=== PATIENT | female | born 1940 | race Caucasian/White ===

== ENCOUNTER → 2023-05-28 10:32 | Outpatient (CLI) | payer OTHER, SELFPAY ==
[2023-05-28 12:29] LABS: Add Manual Diff / Slide Review NO; Basophils Absolute Auto 0 /uL (0-100); Basophils Percent Auto 0.3 % (0-2); Eosinophils Absolute Auto 100 /uL (0-450); Eosinophils Percent Auto 1.9 % (2-4); Hemoglobin 14.4 g/dL (12.0-16.0); Lymphocytes Absolute Auto 1600 /uL (1100-4500); Mean Corpuscular HGB Conc 34.2 % (30-36); Mean Corpuscular Hemoglobin 31.9 PG (26-34); Mean Corpuscular Volume 93.4 fL (80-100); Monocytes Absolute Auto 400 /uL (0-900); Monocytes Percent Auto 9.2 % (3-14); Neutrophils Absolute Auto 2300 /uL (1500-7000); Neutrophils Percent Auto 52.6 % (50-75); Platelet Count 282 X10^3/uL (150-400); Red Cell Distribution Width 12.7 % (11.6-14.8); White Blood Cell Count 4.5 X10^3/uL (4.5-11.0)
[2023-05-28 13:01] LABS: Erythrocyte Sedimentation Rate 5 MM/HR (0-20)
[2023-05-28 13:17] LABS: Alanine Aminotransferase 19 IU/L (<35); Albumin 4.4 g/dL (3.5-5.0); Albumin Globulin Ratio 1.4 (1.0-2.8); Alkaline Phosphatase 69 U/L (38-126); Aspartate Aminotransferase 26 IU/L (14-36); BUN Creatinine Ratio 21.6 (6-22); Bilirubin Total 0.6 mg/dL (0.2-1.3); Blood Urea Nitrogen 11 mg/dL (7-17); Calcium 9.3 mg/dL (8.4-10.2); Carbon Dioxide 31 mmol/L (22-32); Chloride 99 mmol/L (98-107); Cholesterol 251 mg/dL (140-199); Estimated Glomerular Filt Rate > 60 mL/min (>60); Globulin 3.2 g/dL (1.7-4.1); Glucose 119 mg/dL (80-110); HDL Cholesterol 77 mg/dL (40-60); HEMOLYSIS < 15 (0-50); LDL Cholesterol Calculated 130 mg/dL (<100); Potassium 3.9 mmol/L (3.4-5.1); Sodium 137 mmol/L (137-145); Total Protein 7.6 g/dL (6.3-8.2); Triglycerides 221 mg/dL (35-150)
[2023-05-28 13:47] LABS: TSH w/ Reflex to FT4 1.39 uIU/mL (0.47-4.68)
[2023-05-29 22:56] LABS: Deamidated Gliadin Ab IgA 3 units (0-19); Deamidated Gliadin Ab IgG 1 units (0-19); Immunoglobulin A,Qn 151 mg/dL (64-422); t-Transglutaminase IgA <2 U/mL (0-3)
== END ==
PROVIDERS: PCP Family Medicine; Referring Provider Family Medicine; Visit Provider Family Medicine
DX: Z00.00 Encounter for general adult medical examination without abnormal findings (principal); K52.9 Noninfective gastroenteritis and colitis, unspecified
CPT/HCPCS: 36415; 80053; 80061; 82784; 83516; 84443; 85025; 85651

== ENCOUNTER → 2023-06-04 08:53 | Outpatient (CLI) | payer OTHER, SELFPAY | PROVIDERS: PCP Family Medicine; Referring Provider Family Medicine; Visit Provider Family Medicine | DX: K52.9 Noninfective gastroenteritis and colitis, unspecified (principal) | CPT/HCPCS: 87045; 87177; 87329; 87899 ==

== ENCOUNTER 2025-01-10 13:19 | Emergency (ER) | payer MEDICARE, SELFPAY ==
[2025-01-10 13:23] VITALS: BP 102/56; PULSE 68; RESP 18; TEMP 36.4; O2SAT 97; BMI 21.3
--- NOTE | 2025-01-10 13:33 | DI.CT.S_ITS ---
PROCEDURE: CT CERVICAL SPINE WO CON INDICATIONS: fall/hit head/no thinners TECHNIQUE: Noncontrast 3 mm thick sections acquired from the skull base to the T4 level. Sagittal and coronal reformats were then constructed. For radiation dose reduction, the following was used: automated exposure control, adjustment of mA and/or kV according to patient size. COMPARISON: [facility], CT, CT HEAD/BRAIN WO CON, 01/10/2025, 13:40. FINDINGS: Image quality: Excellent. Bones: No fractures or dislocations. Visualized superior ribs are intact. Multilevel degenerative changes. Soft tissues: Prevertebral soft tissues are normal in thickness. No paravertebral hematomas. No apical pneumothoraces. IMPRESSION: No displaced fracture or traumatic subluxation. Dictated by: Sherry Edwards M.D. on 01/10/2025 at 14:14 Approved by: Sherry Edwards M.D. on 01/10/2025 at 14:15
--- NOTE | 2025-01-10 13:33 | DI.CT.S_ITS ---
PROCEDURE: CT HEAD/BRAIN WO CON INDICATIONS: fall/hit head/no thinners TECHNIQUE: Noncontrast 4.5 mm thick angled axial sections acquired from the foramen magnum to the vertex, with coronal and sagittal reformats. For radiation dose reduction, the following was used: automated exposure control, adjustment of mA and/or kV according to patient size. COMPARISON: [facility], CT, CT CERVICAL SPINE WO CON, 01/10/2025, 13:40. FINDINGS: Image quality: Diagnostic. CSF spaces: Basal cisterns are patent. No extra-axial fluid collections. The ventricles are symmetric in size and shape. Brain: No intracranial bleeds or mass effect. There is cerebral volume loss, with resultant ventricular and sulcal prominence. There are periventricular and deep white matter chronic small vessel ischemic changes. There is intracranial internal carotid artery atherosclerosis. Skull and face: Calvarium and visualized facial bones appear intact, without suspicious lesions. Sinuses: Visualized sinuses and mastoids are clear. IMPRESSION: 1. No acute intracranial process. 2. Moderate atrophy and chronic microvascular ischemic changes. Dictated by: Sherry Edwards M.D. on 01/10/2025 at 14:14 Approved by: Sherry Edwards M.D. on 01/10/2025 at 14:14
--- NOTE | 2025-01-10 13:34 | DI.RAD.S_ITS ---
PROCEDURE: XR HAND RT MIN 3V INDICATIONS: fall/pain/swelling TECHNIQUE: 3 views of the hand(s) acquired. COMPARISON: None. FINDINGS: Bones: Diffuse arthritic changes including IP and 1st CMC degenerative change. Flexion deformity is present at the 5th PIP and to a lesser degree DIP joint. Soft tissues: No suspicious soft tissue calcifications. IMPRESSION: Diffuse arthritic changes. No visualized acute fracture or dislocation. However, if clinical concern and/or pain persist, short interval imaging followup in 7-10 days is recommended, as occult injury cannot be definitively excluded. Dictated by: Sherry Edwards M.D. on 01/10/2025 at 14:22 Approved by: Sherry Edwards M.D. on 01/10/2025 at 14:22
--- NOTE | 2025-01-10 13:34 | DI.RAD.S_ITS ---
PROCEDURE: XR WRIST RT MIN 3V INDICATIONS: fall/pain/swelling TECHNIQUE: 4 views of the wrist were acquired. COMPARISON: [facility], CT, CT CERVICAL SPINE WO CON, 01/10/2025, 13:40. [facility], CT, CT HEAD/BRAIN WO CON, 01/10/2025, 13:40. [facility], CR, XR HAND RT MIN 3V, 01/10/2025, 13:31. [facility], CR, XR HAND LT MIN 3V, 01/10/2025, 13:31. FINDINGS: Bones: No fractures or dislocations. No navicular fractures are seen. No suspicious bony lesions. Degenerative changes are seen throughout, which are most prominent involving the 1st carpometacarpal joint. Milder degenerative changes are seen elsewhere. The scapholunate interface measures 2-3 mm, near the upper limits of normal. Soft tissues: No suspicious soft tissue calcifications. IMPRESSION: No displaced fractures are seen. If there is snuffbox tenderness (or other clinical suspicion for a fracture not seen on these images) then a repeat examination would be recommended in 10 to 14 days, following splinting. Underlying degenerative changes are seen, which are worst involving the 1st carpometacarpal joint. Dictated by: Harley Romero M.D. on 01/10/2025 at 13:20 Approved by: Harley Romero M.D. on 01/10/2025 at 13:21
--- NOTE | 2025-01-10 13:34 | DI.RAD.S_ITS ---
PROCEDURE: XR HAND LT MIN 3V INDICATIONS: fall/pain/swelling TECHNIQUE: 3 views of the hand(s) acquired. COMPARISON: [facility], CR, XR HAND RT MIN 3V, 01/10/2025, 13:31. FINDINGS: Bones: Diffuse IP and 1st CMC degenerative changes are present. The 4th digit is flexed at the MCP PIP and DIP joints. The digit is suboptimally evaluated. There is irregularity and lucency with mild displacement at the base of the distal phalanx. Lucencies extend to the joint space. Soft tissues: No suspicious soft tissue calcifications. IMPRESSION: Diffuse arthritic changes. Prominent flexion deformity of the 4th digit. It is uncertain if this is chronic or related to trauma as it is suboptimally evaluated. No definitive fractures identified. However, posttraumatic flexion deformity cannot be excluded. Irregularity at the base of the 5th distal phalanx highly suspicious for fracture. Recommend correlation point tenderness for acute fracture versus remote trauma/superimposed arthritic change. Dictated by: Sherry Edwards M.D. on 01/10/2025 at 14:15 Approved by: Sherry Edwards M.D. on 01/10/2025 at 14:21
[2025-01-10 13:40] VITALS: BP 131/60
[2025-01-10 14:03] VITALS: BP 137/67; PULSE 63; RESP 16; O2SAT 96
[2025-01-10 14:48] VITALS: BP 139/65; PULSE 64; RESP 18; O2SAT 96
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
[2025-01-10] MEDS: TET,DIPH,PERTUSS(ACELL),VAC/PF 0.5 ML SYRINGE IM (16:47)
[2025-01-10] MEDS: ONDANSETRON 4 MG ODT SL (16:47)
[2025-01-10] MEDS: ACETAMINOPHEN 325 MG TABLET 650 MG PO (16:47)
[2025-01-10] MEDS: BACITRACIN OINT 0.9 GM PCKT 1 APPLIC TOP (16:48)
[2025-01-10] MEDS: LIDOCAINE 1% W/EPI 10ML 10 ML SUBCUT (16:48)
[2025-01-10 18:31] VITALS: BP 151/75; PULSE 74; RESP 16; O2SAT 96
== END 2025-01-10 18:28 | disposition home or self-care (01) ==
PROVIDERS: Emergency Provider Physician Assistant; PCP Family Medicine
DX: S01.111A Laceration without foreign body of right eyelid and periocular area, initial encounter (principal); S62.635A Displaced fracture of distal phalanx of left ring finger, initial encounter for closed fracture; S62.614A Displaced fracture of proximal phalanx of right ring finger, initial encounter for closed fracture; W18.30XA Fall on same level, unspecified, initial encounter; Z23 Encounter for immunization
CPT/HCPCS: 12013; 70450; 72125; 73110; 73130; 90471; 99283; 99284; 90715

== ENCOUNTER → 2025-01-16 08:41 | Outpatient (CLI) | payer MEDICARE, SELFPAY ==
--- NOTE | 2025-01-16 08:43 | DI.RAD.S_ITS ---
PROCEDURE: XR HAND LT MIN 3V INDICATIONS: FINGER FRACTURE, 5TH DIGIT TECHNIQUE: 3 views of the hand(s) acquired. COMPARISON: [facility], CR, XR HAND RT MIN 3V, 01/10/2025, 13:31. FINDINGS: Bones: No fractures or dislocations. Flexion deformities of the 4th metacarpophalangeal and proximal and distal interphalangeal joints. Moderate degenerative changes of the 5th interphalangeal and 1st metacarpophalangeal joints marked by joint space narrowing, marginal osteophytosis and subchondral sclerosis. Carpal bones are normally aligned. No suspicious bony lesions. Soft tissues: No suspicious soft tissue calcifications. IMPRESSION: Degenerative change and flexion deformities of the joints of the 4th ray without evidence of acute bony abnormality. Dictated by: Tal Reyes M.D. on 01/18/2025 at 1:39 Approved by: Tal Reyes M.D. on 01/18/2025 at 1:40
--- NOTE | 2025-01-16 08:43 | DI.RAD.S_ITS ---
PROCEDURE: XR HAND RT MIN 3V INDICATIONS: FINGER FRACTURE, 4TH DIGIT TECHNIQUE: 3 views of the hand(s) acquired. COMPARISON: [facility], CR, XR HAND RT MIN 3V, 01/10/2025, 13:31. FINDINGS: Bones: No fractures or dislocations. Stable appearing degenerative changes of the trapezium metacarpal, STT and 5th proximal interphalangeal joints include joint space narrowing, marginal osteophytosis and subchondral sclerosis. Flexion deformity of the 5th proximal interphalangeal joint noted. Carpal bones are normally aligned. No suspicious bony lesions. Soft tissues: No suspicious soft tissue calcifications. IMPRESSION: Degenerative change of the TMC, STT and 5th PIP joints without evidence of acute bony abnormality. Dictated by: Tal Reyes M.D. on 01/17/2025 at 21:54 Approved by: Tal Reyes M.D. on 01/18/2025 at 1:39
== END ==
PROVIDERS: PCP Family Medicine; Referring Provider Family Medicine; Visit Provider Family Medicine
DX: S62.667A Nondisplaced fracture of distal phalanx of left little finger, initial encounter for closed fracture (principal); S62.624A Displaced fracture of middle phalanx of right ring finger, initial encounter for closed fracture; X58.XXXA Exposure to other specified factors, initial encounter
CPT/HCPCS: 73130

== ENCOUNTER 2025-01-23 15:54 | Outpatient (RCR) | payer MEDICARE, SELFPAY ==
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
== END 2025-01-29 10:56 | disposition home or self-care (01) ==
LOC: OT 15:54
PROVIDERS: Family Provider Family Medicine; PCP Family Medicine; Referring Provider Family Medicine; Visit Provider Family Medicine
DX: S62.667D Nondisplaced fracture of distal phalanx of left little finger, subsequent encounter for fracture with routine healing (principal); S62.624D Displaced fracture of middle phalanx of right ring finger, subsequent encounter for fracture with routine healing
CPT/HCPCS: 97165; 97530